=== PATIENT | female | born 1995 | race Hispanic/Latino ===

== ENCOUNTER 2019-03-06 19:29 | Emergency (ER) | payer OTHER, SELFPAY ==
[2019-03-06] MEDS ORDERED: Acetaminophen 500 MG TAB ONE (20:06)
--- NOTE | 2019-03-06 20:22 | RAD ---
Exam: Left ankle 3 views: HISTORY: Injury and pain FINDINGS: Diffuse soft tissue fullness and swelling of the lower leg and ankle. Very minimally displaced obliqu e fracture through the distal fibula metadiaphysis. The talar dome appears intact. IMPRESSION: Very minimally displaced oblique fracture through the distal fibular metadiaphysis. Diffuse soft tiss ue swelling.
== END 2019-03-06 21:43 | disposition home or self-care (01) ==
LOC: ERS 19:29
DX: S82.832A Other fracture of upper and lower end of left fibula, initial encounter for closed fracture (principal); W22.8XXA Striking against or struck by other objects, initial encounter

== ENCOUNTER 2020-10-24 10:20 | Emergency (ER) | payer OTHER, SELFPAY ==
[2020-10-24] MEDS ORDERED: Ondansetron PF 4 MG/2 ML Vial ONE (10:53)
[2020-10-24] MEDS ORDERED: Dexamethasone 10 MG/ML VIAL ONE (10:53)
[2020-10-24] MEDS ORDERED: Acetaminophen 500 MG TAB ONE (10:53)
[2020-10-24] MEDS ORDERED: Aspirin Chewable 81 MG TAB ONE (10:53)
[2020-10-24 10:58] LABS: #Lymphocytes 0.8 thou/uL (1.20-3.40); #Monocytes 0.3 thou/uL (0.11-0.59); #Neutrophils 3.8 thou/uL (1.40-6.50); %Basophils 0.2 % (0.0-1.0); %Lymphocytes 16.8 % (21.0-51.0); %Monocytes 6.5 % (0.0-10.0); %Neutrophils 76.5 % (42.0-75.0); Hemoglobin 14.3 g/dL (12.0-16.0); Mean Corpuscular HGB CONC 33.8 g/dL (32.0-36.0); Mean Corpuscular Hemoglobin 29.1 pg (27.0-31.0); Mean Corpuscular Volume 86.3 fL (78.0-98.0); Mean Platelet Volume 7.1 fL (7.4-10.4); Platelet Count 194 thou/uL (130-400); RBC Distribution Width 12.8 % (11.5-14.5); Red Blood Cell (RBC) Count 4.91 mill/uL (4.20-5.40); White Blood Cell (WBC) Count 4.9 thou/uL (4.8-10.8)
[2020-10-24 11:39] LABS: ALT (SGPT) 32 U/L (8-55); AST (SGOT) 29 U/L (5-34); Alkaline Phosphatase 84 U/L (40-110); Anion Gap 14 mmol/L (10-20); BUN (Urea Nitrogen) 11 mg/dL (7.0-18.7); Bilirubin, Total 0.7 mg/dL (0.2-1.2); Calc. Creatinine Clearance 0 mL/min (70-130); Calcium 8.5 mg/dL (7.8-10.44); Carbon Dioxide 20 mmol/L (22-29); Chloride 105 mmol/L (98-107); Globulin 3.7 g/dL (2.4-3.5); Glucose 106 mg/dL (70-105); Potassium 4.1 mmol/L (3.5-5.1); Protein, Total 7.7 g/dL (6.0-8.3); Sodium 135 mmol/L (136-145)
== END 2020-10-24 13:10 | disposition home or self-care (01) ==
LOC: ERS 10:20
DX: U07.1 COVID-19 (principal); J12.89 Other viral pneumonia; E86.0 Dehydration; M79.10 Myalgia, unspecified site
CPT/HCPCS: 36415; 71045; 80053; 83605; 84484; 85025; 85379; 86140; 87040; 87186; 94760; 96374; 96375; J1100; J2405